=== PATIENT | male | born 1975 | race Caucasian/White ===

== ENCOUNTER 2020-05-26 12:18 | Emergency (ER) | payer OTHER ==
[2020-05-26 12:55] LABS: BASOPHIL 0.4 % (0-2); EOSINOPHIL 1.7 % (0-5); HCT 48.7 % (42.0-52.0); HGB 15.6 g/dl (13.2-18.0); LYMPHOCYTE 16.3 % (15-48); MCH 27.8 pg (25.0-31.0); MCV 86.7 fL (78.0-100.0); MONOCYTE 6.4 % (0-12); MPV 10.6 fL (6.0-9.5); NEUTROPHIL 74.8 % (41-80); NRBC 0; PLT 237 K/uL (150-400); RBC 5.62 M/uL (4.70-6.00); RDW 13.2 % (11.5-14.0); WBC 11.4 K/uL (4.0-10.5)
[2020-05-26 13:03] LABS: ALBUMIN 4.2 g/dL (3.4-5.0); BILIRUBIN - TOTAL 0.4 mg/dL (0.2-1.0); BUN/CREAT RATIO (CALC) 16.5 RATIO; CREATININE 0.97 mg/dL (0.67-1.17); GLOBULIN (CALCULATION) 3.9 g/dL; POTASSIUM 4.2 mmol/L (3.5-5.1); TOTAL PROTEIN 8.1 g/dL (6.4-8.2)
[2020-05-26 13:41] LABS: BILIRUBIN NEGATIVE (NEGATIVE); BLOOD NEGATIVE Ery/uL (NEGATIVE); CLARITY CLEAR (CLEAR); COLOR YELLOW (YELLOW); GLUCOSE (U) NORMAL (NORMAL); LEUKOCYTES NEGATIVE Leu/uL (NEGATIVE); NITRITE NEGATIVE (NEGATIVE); PROTEIN NEGATIVE (NEGATIVE); UROBILINOGEN 0.2 mg/dL (0.2-1.0)
== END 2020-05-26 15:40 | disposition home or self-care (01) ==
LOC: FER 12:18
PROVIDERS: Emergency Medicine
DX: R10.9 Unspecified abdominal pain (principal); K76.0 Fatty (change of) liver, not elsewhere classified; I10 Essential (primary) hypertension; Z88.0 Allergy status to penicillin; Z79.899 Other long term (current) drug therapy
CPT/HCPCS: 36415; 80053; 81003; 83690; 85025; Q9967

== ENCOUNTER 2021-08-20 08:43 | Emergency (ER) | payer OTHER ==
[2021-08-20 09:48] LABS: INFLUENZA A NAA NEGATIVE (NEGATIVE)
[2021-08-20 10:11] LABS: CORONAVIRUS 2019 SARS-COV-2 POSITIVE (NEGATIVE)
[2021-08-20] MEDS ORDERED: PHENERGAN25 M1 PO (10:34)
[2021-08-20] MEDS ORDERED: ONDANSETRON ODT4 MG PO (10:34)
== END 2021-08-20 10:52 | disposition home or self-care (01) ==
LOC: FER 08:43
PROVIDERS: Emergency Medicine
DX: U07.1 COVID-19 (principal); I10 Essential (primary) hypertension; Z88.0 Allergy status to penicillin
CPT/HCPCS: J1885; U0002